=== PATIENT | female | born 1980 | race African-American/Black ===

== ENCOUNTER 2024-03-12 20:26 | Emergency (ER) | payer BC, SELFPAY ==
[2024-03-12 20:22] VITALS: BP 133/109; PULSE 84; RESP 12; TEMP 37; O2SAT 100
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
[2024-03-12] MEDS: Acetaminophen 500 MG TAB 1000 MG PO (20:39)
[2024-03-12 21:30] VITALS: BP 145/106; PULSE 73
[2024-03-12 21:46] VITALS: BP 136/115; PULSE 122
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
[2024-03-12 22:03] VITALS: BP 133/59; PULSE 71
[2024-03-12 22:19] VITALS: O2SAT 100
[2024-03-12] MEDS: Ibuprofen 800 MG TAB PO (22:20)
[2024-03-12] MEDS: Lidocaine 5% Patch 1 PATCH TP (22:21)
== END 2024-03-12 22:41 | disposition home or self-care (01) ==
PROVIDERS: Emergency Provider Student in an Organized Health Care Education/Training Program
DX: M25.511 Pain in right shoulder (principal); V48.5XXA Car driver injured in noncollision transport accident in traffic accident, initial encounter
CPT/HCPCS: 99284; 70450; 73030; 99283